=== PATIENT | female | born 1980 | race American Indian/Alaskan Native ===

== ENCOUNTER 2017-03-02 20:16 | Emergency (ER) | payer MEDICAID ==
[2017-03-02 21:48] VITALS: BP 142/96
[2017-03-02] MEDS ORDERED: VALIUM PO ONE (23:41)
[2017-03-02] MEDS ORDERED: NORCO 7.5/325 PO ONE (23:41)
--- NOTE | 2017-03-02 23:47 | Emergency Department Report ---
Abscess Boil HPI - HPI Chief Complaint: Skin/Abscess/Foreign Body Stated Complaint: STOMACH BOIL/LEAKING PUS Time Seen by Provider: 03/02/17 23:40 Duration: 1 Week Location: Abdomen Severity: Moderate History: Yes Pain, Yes Purulent Drainage, No Fever, No Numbness, No Foreign Body , No Previous History, No Insect Bite HPI: 36-year-old -[place] female comes in for complaint of an abscess to her lower right abdomen that been there for about a week. She reports had opened up and is starting to drain. She denies any fever chills nausea no vomiting. He reports that the drainage is purulent with an odor. Denies any past medical history currently takes no medication and has no known drug allergies. Home Medications: Previous Rx's Medication Instructions Recorded Last Taken Type Cephalexin [Keflex] 500 mg PO Q12HR #20 cap 03/03/17 Unknown Rx Ibuprofen [Motrin] 800 mg PO Q8HR PRN #30 tablet 03/03/17 Unknown Rx Allergies/Adverse Reactions: Allergies Allergy/AdvReac Type Severity Reaction Status Date / Time No Known Allergies Allergy Verified 03/03/17 01:13 ED Review of Systems ROS: Stated complaint: STOMACH BOIL/LEAKING PUS Other details as noted in HPI Constitutional: denies: chills, fever Eyes: denies: eye pain, eye discharge, vision change ENT: denies: ear pain, throat pain Respiratory: denies: cough, shortness of breath, wheezing Cardiovascular: denies: chest pain, palpitations Endocrine: no symptoms reported Gastrointestinal: denies: abdominal pain, nausea, diarrhea Genitourinary: denies: urgency, dysuria, discharge Skin: lesions Neurological: denies: headache, weakness, paresthesias Psychiatric: denies: anxiety, depression Hematological/Lymphatic: denies: easy bleeding, easy bruising ED Past Medical Hx - Past Medical History Previous Medical History?: No - Surgical History Past Surgical History?: Yes Additional Surgical History: c-sec x 3 - Social History Smoking Status: Never Smoker Substance Use Type: None - Medications Home Medications: Home Medications Medication Instructions Recorded Confirmed Last Taken Type Cephalexin [Keflex] 500 mg PO Q12HR #20 cap 03/03/17 Unknown Rx Ibuprofen [Motrin] 800 mg PO Q8HR PRN #30 tablet 03/03/17 Unknown Rx ED Abscess Boil Physical Exam - Exam General: Vital signs noted. No distress. Alert and acting appropriately. Size: 2 cm Exam: Yes Tenderness, Yes Fluctuance, Yes Surrounding Cellulites/Erythema, Yes Normal Neurologic Exam, Yes Normal Circulation, No Lymphangitis, No Crepitation , No Heart Murmur ED Course Vital Signs 03/02/17 21:45 Temperature 98 F Pulse Rate 66 Respiratory 18 Rate Blood Pressure 142/96 O2 Sat by Pulse 100 Oximetry Critical care attestation.: If time is entered above; I have spent that time in minutes in the direct care of this critically ill patient, excluding procedure time. ED Medical Decision Making - Medical Decision Making Patient has been evaluated by this provider in fast track. This provider has placed a warm compress to her right lower abdomen as well as ordered 5 mg of Valium and Gaines 5/325 for pain control. Discussed with patient that we would discharge her on antibiotics and most likely have her come back for packing removal. He should verbalize understanding. This provider made an attempt to incision and drained but no purulent discharge will come discuss the patient will place her on Keflex for 10 days and have her follow-up with her primary care provider patient verbalized understanding. ED Disposition Clinical Impression: Cellulitis, abdominal wall Disposition: DISCHARGED TO HOME OR SELFCARE Is pt being admited?: No Does the pt Need Aspirin: No Condition: Stable Instructions: Cellulitis (ED) Additional Instructions: Please complete antibiotics as prescribed. He can continue to place warm compresses on your abdomen. Take pain medication for pain control. Follow up with her primary care provider. Prescriptions: Cephalexin [Keflex] 500 mg PO Q12HR #20 cap Ibuprofen [Motrin] 800 mg PO Q8HR PRN #30 tablet PRN Reason: Pain Referrals: PRIMARY CARE, [Primary Care Provider] - 3-5 Days [facility] [Outside] - 3-5 Days Forms: Work/School Release Form(ED), Accompanied Note
[2017-03-03] MEDS ORDERED: XYLOCAINE 1% MPF 5 mL INFILTRATI ONE (01:01)
[2017-03-03] MEDS ORDERED: XYLOCAINE 1% MPF 5 mL ONE (01:01)
== END 2017-03-03 01:25 | disposition home or self-care (01) ==
LOC: ED 20:16
DX: L03.311 Cellulitis of abdominal wall (principal)
CPT/HCPCS: 99282